=== PATIENT | female | born 1960 | race Caucasian/White ===

== ENCOUNTER 2019-03-12 14:51 | Outpatient (CLI) | payer OTHER ==
--- NOTE | 2019-03-12 15:19 | RAD ---
Frontal and lateral imaging of the thoracic spine: 03/12/2019 COMPARISON: None HISTORY: Compression fracture, history of scoliosis and multiple sclerosis FINDINGS: There is a superior endplate fracture which appears to be at the T12 level with approximate ly 35-40% loss of vertebral body height centrally. Probable age-indeterminate superior endplate fracture noted at the T7, T9, and T10 levels as well. IMPRESSION: Limited assessment of the thoracic spine demonstrating findings suggesting thoracic spine superior endplate fractures, most prominent at the T12 level. No comparison imaging is available.
== END 2019-03-12 14:52 | disposition home or self-care (01) ==
LOC: TBSIIMAG 14:51
PROVIDERS: ATTEND Surgery
DX: S22.009A Unspecified fracture of unspecified thoracic vertebra, initial encounter for closed fracture (principal)
CPT/HCPCS: 72070

== ENCOUNTER 2019-04-25 10:33 | Outpatient (CLI) | payer OTHER ==
--- NOTE | 2019-04-25 11:29 | CT ---
Exam: CT thoracic spine without contrast HISTORY: Thoracic back pain COMPARISON: None Correlation: Thoracic spine radiograph 03/12/2019 FINDINGS: Visualized mediastinum, lung parenchyma and solid organs are grossly unremarkable. Incidental cyst in the liver measuring 1.2 x 1.6 cm. No paraspinal mass, lymphadenopathy or hematoma. Normal caliber aorta Visualized central spinal canal and neural foramina throughout the thoracic spine are patent. [employer] does limit evaluation There is an probable chronic mild to moderate compression fracture at T12 with mild retropulsion. No significant central canal stenosis. Probable chronic irregularities involving the superior endplate of T6 and T7 with associated Schmorl' s node. Overall there is mild loss of vertebral body height at T6 and T7. There is sclerosis without significant loss of the body height at T1, T2 and T3. Indeterminate endpla te injury is suspected. IMPRESSION: 1. Probable chronic compression fractures at T6, T7 and T12. 2. Indeterminate superior endplate irregularities with sclerosis at T1, T2 and T3. Better interrogati on with MRI is recommended to assess for edema which would imply a subacute injury.
== END 2019-04-25 10:34 | disposition home or self-care (01) ==
LOC: TBSIIMAG 10:33
PROVIDERS: ATTEND Physician Assistant
DX: M54.6 Pain in thoracic spine (principal); M89.8X8 Other specified disorders of bone, other site
CPT/HCPCS: 72128